=== PATIENT | female | born 1950 | race Caucasian/White ===

== ENCOUNTER 2019-02-11 09:53 | Emergency (ER) | payer OTHER, BC ==
--- NOTE | 2019-02-11 10:46 | RAD REPORT ---
EXAM DESCRIPTION: CT - Head Brain Wo Cont - 02/11/2019 10:38 am CLINICAL HISTORY: DIZZINESS Headache, drowsiness, nausea COMPARISON: No comparisons TECHNIQUE: All CT scans are performed using dose optimization technique as appropriate and may inclu de automated exposure control or mA/KV adjustment according to patient size. FINDINGS: No intracranial hemorrhage, hydrocephalus or extra-axial fluid collection.No areas of brai n edema or evidence of midline shift. The paranasal sinuses and mastoids are clear. The calvarium is intact. IMPRESSION: No acute intracranial abnormality.
[2019-02-11] MEDS ORDERED: MECLIZINE HCL 12.5 MG TAB ONE (11:17)
[2019-02-11] MEDS ORDERED: ONDANSETRON 4 MG/2 ML VIAL ONE (11:17)
[2019-02-11 11:24] LABS: Protime INR 0.95
[2019-02-11 11:25] LABS: Absolute Lymphocytes (CBC) 2.1 K/uL (0.7-4.9); Absolute Monocytes 0.4 K/uL (0.1-1.3); Absolute Neutrophil 2.8 K/uL (1.8-8.0); Eosinophils % 2.1 % (0-4.4); Lymphocytes % 37.9 % (15.3-44.8); MPV 9.4 fL (7.6-11.3); Monocytes % 7.9 % (3.3-12.3); RBC Red Blood Cell Count 4.93 M/uL (3.86-4.86)
--- NOTE | 2019-02-11 11:34 | RAD REPORT ---
EXAM DESCRIPTION: RAD - Chest Single View - 02/11/2019 11:23 am CLINICAL HISTORY: dizziness Chest pain. COMPARISON: Chest Pa And Lat (2 Views) dated 04/27/2017; CHEST PA AND LAT 2 VIEW dated 09/23/2013; TAMEKA ST PA AND LAT 2 VIEW dated 04/13/2013; CHEST SINGLE VIEW dated 06/26/2012 FINDINGS: Portable technique limits examination quality. The lungs are grossly clear. The heart is normal in size. No displaced fractures. IMPRESSION: No acute intrathoracic process suspected.
[2019-02-11 11:49] LABS: ALT/SGPT 28 U/L (12-78); AST/SGOT 21 U/L (15-37); Albumin 3.9 g/dL (3.4-5.0); Alkaline Phosphatase 61 U/L (45-117); BUN Blood Urea Nitrogen 16 mg/dL (7-18); Bicarbonate 23 mmol/L (21-32); Bilirubin Direct < 0.1 mg/dL (0-0.2); Bilirubin Total 0.4 mg/dL (0.2-1.0); Glucose Level 88 mg/dL (74-106); Magnesium 2.5 mg/dL (1.8-2.4); NT PRO-BNP 131 pg/mL (<125); Potassium 4.3 mmol/L (3.5-5.1); Protein, Total 7.9 g/dL (6.4-8.2); Sodium Level 143 mmol/L (136-145); Troponin (Emerg Dept Use Only) < 0.02 ng/mL (0.0-0.045)
--- NOTE | 2019-02-11 12:20 | RAD REPORT ---
EXAM DESCRIPTION: MRI - Brain Wo Cont - 02/11/2019 11:59 am CLINICAL HISTORY: DIZZINESS Headache, drowsiness, blurry vision COMPARISON: Head Brain Wo Cont dated 02/11/2019 TECHNIQUE: Multi-sequence, multiplanar MR imaging of the brain was performed without contrast. FINDINGS: No intracranial hemorrhage, hydrocephalus or extra-axial fluid collections. No edema or sh ift of midline structures. No findings to suspect brain mass. DWI is negative for acute CVA. Midline structures are normally formed. Mastoid air cells and paranasal sinuses are clear. IMPRESSION: No acute or concerning intracranial abnormalities.
--- NOTE | 2019-02-11 12:44 | EDPHYS ---
Physician Documentation [facility] Name: Jess Lyman Age: 68 yrs Sex: Female : 1950 Arrival Date: 02/11/2019 Time: 09:56 Bed 16 Private MD: Partha Wise ED Physician Skyler Zhang HPI: 02/11 10:28 This 68 yrs old Female presents to ER via Wheelchair with complaints of jmm Dizziness, Nausea. 10:28 The patient presents with dizziness. Onset: The symptoms/episode began/occurred jmm acutely. Context: occurred at work. Modifying factors: The symptoms are alleviated by lying down, the symptoms are aggravated by movement of head. This is a 68 year old female with no chronic medical conditions that presents to the ED with complaints of acute onset dizziness beginning yesterday while at work. Symptoms are worsened with movement. Patient complains of nausea but denies vomiting. Patient also complains of weakness to her left hand for the past 2 weeks and weakness to the left foot for 2 months. . Historical: - Allergies: 10:11 scopolamine; sv - PMHx: 10:11 None; sv - PSHx: 10:11 Cholecystectomy; sv - Immunization history:: Adult Immunizations up to date. - Social history:: Smoking status: Patient/guardian denies using tobacco. - Ebola Screening: : No symptoms or risks identified at this time. ROS: 10:28 Constitutional: Negative for fever, chills, and weight loss, Cardiovascular: Negative jmm for chest pain, palpitations, and edema, Respiratory: Negative for shortness of breath, cough, wheezing, and pleuritic chest pain. 10:28 Abdomen/GI: Positive for nausea. 10:28 Neuro: Positive for dizziness. 10:28 All other systems are negative. Exam: 10:28 Constitutional: This is a well developed, well nourished patient who is awake, alert, jmm and in no acute distress. Head/Face: atraumatic. Eyes: EOMI, no conjunctival erythema appreciated ENT: Moist Mucus Membranes Neck: Trachea midline, Supple Chest/axilla: Normal chest wall appearance and motion. Cardiovascular: Regular rate and rhythm. No edema appreciated Respiratory: Normal respirations, no respiratory distress appreciated Back: Normal ROM Skin: General appearance color normal MS/ Extremity: Moves all extremities, no obvious deformities appreciated, no edema noted to the lower extremities 10:28 Neuro: Orientation: is normal, Mentation: is normal, Memory: is normal, Cerebellar function: normal finger to nose testing, Motor: is normal. 10:28 Psych: Behavior/mood is pleasant, cooperative. 10:59 ECG was reviewed by the Attending Physician. [facility] Vital Signs: 10:12 BP 146 / 75; Pulse 63; Resp 18; Temp 98.1; Pulse Ox 100% ; Weight 65.77 kg; Height 5 sv ft. 5 in. (165.10 cm); Pain 0/10; 11:16 BP 143 / 71; Pulse 65; Resp 16; Pulse Ox 100% ; bp 13:20 BP 145 / 69; Pulse 65; Resp 16; Temp 98; Pulse Ox 99% ; bp 10:12 Body Mass Index 24.13 (65.77 kg, 165.10 cm) sv MDM: 10:28 Patient medically screened. [facility] 12:40 Data reviewed: vital signs, nurses notes. Counseling: I had a detailed discussion with [facility] the patient and/or guardian regarding: the historical points, exam findings, and any diagnostic results supporting the discharge/admit diagnosis, radiology results, the need for outpatient follow up, to return to the emergency department if symptoms worsen or persist or if there are any questions or concerns that arise at home. ED course: Imaging studies, MRI negative. EKG normal. Normal gait, normal cerebellar exam. Patient is advised to follow up with ENT for further evaluation. Patient otherwise given strict return precautions. Patient understood and agrees with the plan of care. . 02/11 10:29 Order name: Basic Metabolic Panel; Complete Time: 11:52 [facility] 02/11 10:29 Order name: CBC with Diff; Complete Time: 11:37 [facility] 02/11 10:29 Order name: LFT's; Complete Time: 11:52 [facility] 02/11 10:29 Order name: Magnesium; Complete Time: 11:52 [facility] 02/11 10:29 Order name: NT PRO-BNP; Complete Time: 11:52 [facility] 02/11 10:29 Order name: PT-INR; Complete Time: 11:37 [facility] 02/11 10:29 Order name: Troponin (emerg Dept Use Only); Complete Time: 11:52 [facility] 02/11 10:29 Order name: XRAY Chest (1 view); Complete Time: 11:37 02/11 10:29 Order name: EKG; Complete Time: 10:30 02/11 10:29 Order name: Cardiac monitoring; Complete Time: 10:48 02/11 10:29 Order name: CT Head Brain wo Cont; Complete Time: 10:56 02/11 10:57 Order name: MRI - Brain Wo Cont; Complete Time: 12:22 02/11 10:29 Order name: EKG - Nurse/Tech; Complete Time: 10:48 02/11 10:29 Order name: IV Saline Lock; Complete Time: 11:12 02/11 10:29 Order name: Labs collected and sent; Complete Time: 11:12 02/11 10:29 Order name: O2 Per Protocol; Complete Time: 11:12 02/11 10:29 Order name: O2 Sat Monitoring; Complete Time: 11:12 02/11 12:23 Order name: Misc. Order: ambulate patient; Complete Time: 13:00 jm EC:59 Rate is 62 beats/min. Rhythm is regular. QRS [place] is Normal. MI interval is normal. QRS jmm interval is normal. QT interval is normal. No Q waves. T waves are Normal. No ST changes noted. Administered Medications: 10:50 Drug: Meclizine 25 mg Route: PO; bp 13:00 Follow up: Response: Marked relief of symptoms bp 10:50 Drug: Zofran 4 mg Route: PO; bp 13:00 Follow up: Response: Nausea is decreased bp Disposition: 02/12 07:36 Co-signature as Attending Physician, Skyler Zhang MD I agree with the assessment and kdr plan of care. Disposition: 02/11/19 12:43 Discharged to Home. Impression: Dizziness and giddiness. - Condition is Stable. - Discharge Instructions: Dizziness. - Prescriptions for Meclizine 25 mg Oral Tablet - take 1 tablet by ORAL route every 8 hours As needed; 30 tablet. - Medication Reconciliation Form, Thank You Letter, Antibiotic Education, Prescription Opioid Use form. - Follow up: Partha Wise MD; When: 2 - 3 days; Reason: Recheck today's complaints, Continuance of care, Re-evaluation by your physician. Follow up: Bella Ball MD; When: 2 - 3 days; Reason: Recheck today's complaints, Continuance of care, Re-evaluation by your physician. Signatures: Dispatcher [employer] Bella Price, RN RN Skyler Stack MD MD kdr Mickail, Joel, PA PA jmm Peltier, Brian, RN RN bp Corrections: (The following items were deleted from the chart) 02/11 13:23 12:43 02/11/2019 12:43 Discharged to Home. Impression: Dizziness and giddiness. bp Condition is Stable. Forms are Medication Reconciliation Form, Thank You Letter, Antibiotic Education, Prescription Opioid Use. Follow up: Partha Wise; When: 2 - 3 days; Reason: Recheck today's complaints, Continuance of care, Re-evaluation by your physician. Follow up: Bella Ball; When: 2 - 3 days; Reason: Recheck today's complaints, Continuance of care, Re-evaluation by your physician. chandana
--- NOTE | 2019-02-11 12:44 | ER ---
Nurse's Notes [facility] Name: Jess Lyman Age: 68 yrs Sex: Female : 1950 Arrival Date: 02/11/2019 Time: 09:56 Bed 16 Private MD: Partha Wise Diagnosis: Dizziness and giddiness Presentation: 02/11 10:11 Presenting complaint: Patient states: dizziness and nausea started yesterday at 1500 sv while at work. Transition of care: patient was not received from another setting of care. Onset of symptoms was February 10, 2019. Initial Sepsis Screen: Does the patient meet any 2 criteria? No. Patient's initial sepsis screen is negative. Does the patient have a suspected source of infection? No. Patient's initial sepsis screen is negative. Care prior to arrival: None. 10:11 Method Of Arrival: Wheelchair sv 10:11 Acuity: BETH 3 sv 10:30 Risk Assessment: Do you want to hurt yourself or someone else? Patient reports no bp desire to harm self or others. Triage Assessment: 10:15 General: Appears in no apparent distress. comfortable, Behavior is cooperative, bp appropriate for age, anxious. Pain: Denies pain. EENT: No deficits noted. Neuro: Level of Consciousness is awake, alert, obeys commands, Oriented to person, place, time, situation, Appropriate for age Reports dizziness. Cardiovascular: No deficits noted. Respiratory: Airway is patent Respiratory effort is even, unlabored, Respiratory pattern is regular, symmetrical. GI: Abdomen is non-distended, Reports nausea. : No signs and/or symptoms were reported regarding the genitourinary system. Derm: No deficits noted. Musculoskeletal: Circulation, motion, and sensation intact. Range of motion: intact in all extremities. Historical: - Allergies: 10:11 scopolamine; sv - PMHx: 10:11 None; sv - PSHx: 10:11 Cholecystectomy; sv - Immunization history:: Adult Immunizations up to date. - Social history:: Smoking status: Patient/guardian denies using tobacco. - Ebola Screening: : No symptoms or risks identified at this time. Screenin:15 Abuse screen: Denies threats or abuse. Denies injuries from another. Nutritional bp screening: No deficits noted. Tuberculosis screening: No symptoms or risk factors identified. Fall Risk No fall in past 12 months (0 pts). No secondary diagnosis (0 pts). No IV (0 pts). Ambulatory Aid- None/Bed Rest/Nurse Assist (0 pts). Gait- Normal/Bed Rest/Wheelchair (0 pts) Mental Status- Oriented to own ability (0 pts). Total Vick Fall Scale indicates No Risk (0-24 pts). Assessment: 10:15 General: SEE TRIAGE NOTE. bp 11:12 Reassessment: PT TO MRI. bp 11:59 Reassessment: PT RETURNED FROM MRI. bp 13:21 Reassessment: PT D/C HOME AMBULATORY, DX WITH DIZZINESS. bp Vital Signs: 10:12 BP 146 / 75; Pulse 63; Resp 18; Temp 98.1; Pulse Ox 100% ; Weight 65.77 kg; Height 5 sv ft. 5 in. (165.10 cm); Pain 0/10; 11:16 BP 143 / 71; Pulse 65; Resp 16; Pulse Ox 100% ; bp 13:20 BP 145 / 69; Pulse 65; Resp 16; Temp 98; Pulse Ox 99% ; bp 10:12 Body Mass Index 24.13 (65.77 kg, 165.10 cm) sv ED Course: 09:56 Patient arrived in ED. mr 09:58 Partha Wise MD is Private Physician. mr 10:11 Triage completed. sv 10:12 Arm band placed on. sv 10:13 Chester Daniels, RN is Primary Nurse. bp 10:15 Patient has correct armband on for positive identification. Bed in low position. Call bp light in reach. Side rails up X2. 10:17 Kleber De Luna PA is PHCP. [facility] 10:17 Skyler Zhang MD is Attending Physician. jmm 10:39 CT Head Brain wo Cont In Process Unspecified. EDMS 10:59 EKG done, by rv repair technician. reviewed by Kleber HUBER. sm3 11:14 Initial lab(s) drawn, by la, sent to lab. Inserted saline lock: 20 gauge in right hand, em1 using aseptic technique. Blood collected. Missed attempt(s): 20 gauge in left antecubital area. Bleeding controlled, band aid applied, catheter tip intact. 11:23 XRAY Chest (1 view) In Process Unspecified. EDMS 11:59 MRI - Brain Wo Cont In Process Unspecified. EDMS 12:42 Partha Wise MD is Referral Physician. [facility] 12:42 Bella Ball MD is Referral Physician. [facility] 13:21 No provider procedures requiring assistance completed. IV discontinued, intact, bp bleeding controlled, No redness/swelling at site. Pressure dressing applied. Administered Medications: 10:50 Drug: Meclizine 25 mg Route: PO; bp 13:00 Follow up: Response: Marked relief of symptoms bp 10:50 Drug: Zofran 4 mg Route: PO; bp 13:00 Follow up: Response: Nausea is decreased bp Outcome: 12:43 Discharge ordered by MD. [facility] 13:22 Discharged to home ambulatory, with family. bp 13:22 Condition: stable 13:22 Discharge instructions given to patient, Instructed on discharge instructions, follow up and referral plans. medication usage, Demonstrated understanding of instructions, follow-up care, medications, Prescriptions given X 1. 13:23 Patient left the ED. bp Signatures: Dispatcher [employer]WY Bella Parsons, RN RN Kleber Ashraf PA PA [facility] Concepcion Sharma, Shadi em1 Chester Daniels, Janny Damon RN 3
--- NOTE | 2019-02-11 13:50 | EKG ---
Test Date: 2019-02-11 Test Time: 10:58:41 Manager E Learning: TERRENCE MEASUREMENT RESULTS: Intervals: Rate: 62 PA: 140 QRSD: 98 QT: 478 QTc: 485 [place]: P: 60 PA: 140 QRS: 69 T: 88 INTERPRETIVE STATEMENTS: Normal sinus rhythm Normal ECG Compared to ECG 06/28/2012 10:42:21 Sinus bradycardia no longer present ST (T wave) deviation no longer present Possible ischemia no longer present Electronically Signed On 02-11-19 13:49:24 CDT by Bipin Basurto
[2019-02-11 15:32] VITALS: BP 145/69; TEMP 98; O2SAT 99
== END 2019-02-11 13:23 | disposition home or self-care (01) ==
LOC: ER 09:53
DX: R42 Dizziness and giddiness (principal); Z88.8 Allergy status to other drugs, medicaments and biological substances
CPT/HCPCS: 93005; 85025; 80048; 36415; 83735; 85610; 80076; 84484; 83880; 70450; 71045; 70551; 99284; J2405